=== PATIENT | male | born 1995 | race Two or more races ===

== ENCOUNTER 2021-10-03 02:19 | Emergency (ER) | payer OTHER, SELFPAY ==
[2021-10-03 02:32] VITALS: BP 155/77; BP 160/90; PULSE 108; PULSE 80; RESP 16; TEMP 36.7; O2SAT 98; O2SAT 99; BMI 39.3
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
[2021-10-03 07:29] VITALS: BP 117/65; PULSE 82; RESP 19; O2SAT 96
[2021-10-03] MEDS: Cyclobenzaprine HCl 10 MG TABLET PO (07:35)
[2021-10-03] MEDS: Ibuprofen 600 MG TABLET PO (07:35)
== END 2021-10-03 07:39 | disposition home or self-care (01) ==
PROVIDERS: Emergency Provider Emergency Medicine
DX: S16.1XXA Strain of muscle, fascia and tendon at neck level, initial encounter (principal); V43.52XA Car driver injured in collision with other type car in traffic accident, initial encounter; Y93.9 Activity, unspecified; Y92.410 Unspecified street and highway as the place of occurrence of the external cause; Y99.9 Unspecified external cause status; Z79.899 Other long term (current) drug therapy
CPT/HCPCS: 99283; 99284